=== PATIENT | male | born 1955 | race Hispanic/Latino ===

== ENCOUNTER 2021-09-18 06:42 | Day surgery (SDC) | payer BC ==
[2021-09-18 08:00] LABS: Basophils # (Auto) 0.1 K/mm3 (0.0-0.1); Eosinophils # (Auto) 0.3 K/mm3 (0.0-0.4); Eosinophils % (Auto) 4.6 % (0.0-4.3); Hematocrit 43.5 % (35.5-45.6); Hemoglobin 14.7 gm/dl (11.8-15.2); Lymphocytes # (Auto) 1.4 K/mm3 (1.2-5.4); Lymphocytes % (Auto) 21.3 % (13.4-35.0); Mean Corpuscular HGB Conc 34 % (32-34); Mean Corpuscular Volume 93 fl (84-94); Monocytes # (Auto) 0.5 K/mm3 (0.0-0.8); Monocytes % (Auto) 7.1 % (0.0-7.3); Platelet Count 295 K/mm3 (140-440); Red Blood Count 4.69 M/mm3 (3.65-5.03); Red Cell Distribution Width 12.8 % (13.2-15.2)
[2021-09-18] MEDS ORDERED: SODIUM CHLORIDE 0.9% 500 ML 500 ML IV SCH (08:00)
[2021-09-18] MEDS ORDERED: ASPIRIN EC 325 MG TAB PO SCH (08:00)
[2021-09-18 08:12] LABS: BUN/Creatinine Ratio 14; Blood Urea Nitrogen 15 mg/dL (9-20); Calcium 9.4 mg/dL (8.4-10.2); Hemolysis Index 3
[2021-09-18 08:15] LABS: INR 0.83 (0.87-1.13)
[2021-09-18] MEDS ORDERED: HEPARIN 10,000 UNITS/10 ML VIAL ONE (09:05)
[2021-09-18] MEDS ORDERED: NITROGLYCERIN SYRINGE 3 ML ONE (09:05)
[2021-09-18] MEDS ORDERED: HEPARIN/NS 5000 UNIT/500ML 1,000 ML IR ONE (09:05)
[2021-09-18] MEDS ORDERED: VERAPAMIL 5 MG/2 ML INJ ONE (09:05)
[2021-09-18] MEDS ORDERED: LIDOCAINE (1%) 10 MG/1 ML VIAL 20 ML MDV ONE (09:05)
[2021-09-18] MEDS ORDERED: MIDAZOLAM 2 MG/2 ML INJ ONE (09:32)
[2021-09-18] MEDS ORDERED: MIDAZOLAM 2 MG/2 ML INJ IV ONE ×2 (09:48→09:58)
[2021-09-18] MEDS ORDERED: HEPARIN 10,000 UNITS/10 ML VIAL ART-SHEATH ONE ×2 (09:49→10:01)
[2021-09-18] MEDS ORDERED: LIDOCAINE (1%) 10 MG/1 ML VIAL 20 ML MDV INFILTRATI ONE ×2 (09:49→10:00)
[2021-09-18] MEDS ORDERED: NITROGLYCERIN 600 MCG/3 ML SYRINGE ART-SHEATH ONE ×2 (09:50→10:02)
[2021-09-18] MEDS ORDERED: VERAPAMIL 5 MG/2 ML INJ ART-SHEATH ONE ×2 (09:50→10:02)
--- NOTE | 2021-09-18 10:41 | Discharge Summary ---
Short Stay Discharge Plan Activity: advance as tolerated Weight Bearing Status: Full Weight Bearing Diet: low fat, low cholesterol, low salt Wound: keep clean and dry Special Instructions: smoking cessation, no heavy lifting (3 days) Follow up with: DR LYNETTE [Other] - 7 Days RAY HERNANDEZ MD [Staff Physician] - 7 Days
[2021-09-18] MEDS ORDERED: SODIUM CHLORIDE 0.9% 1000 ML 1,000 ML IV SCH (10:45)
[2021-09-18] MEDS ORDERED: traMADol 50 MG TAB PO PRN (11:00)
--- NOTE | 2021-09-18 12:23 | Event Note ---
Date: 09/18/21 We have recommend immediate transfer to [place] today for evaluation for coronary bypass, but the patient refuses, stating that he has to go home and take care of some personal issues before he considers bypass surgery. He is aware of the severity of his disease with multiple severe coronary lesions, but wants to proceed with coronary bypass assessment in the outpatient setting. I will add aspirin, metoprolol, long-acting nitrates and atorvastatin to his regimen. I will order a consultation to [place] [facility] surgery for outpatient assessment MELISSA.
--- NOTE | 2021-09-18 13:32 | Cardiac Catherization Report ---
DATE OF SERVICE: 09/18/2021 CARDIAC CATHETERIZATION REPORT REASON FOR PROCEDURE: Chest pain, unstable angina. PROCEDURES PERFORMED: 1. Left heart catheterization. 2. Selective left and right coronary angiography. 3. Left ventricular angiography. 4. Sedation time start 9:49, end 10:15. DESCRIPTION OF PROCEDURE: The patient was prepped and draped in a sterile fashion after informed consent. The right radial cath site was prepped and draped after negative Gordon's test. The right radial artery was entered using Seldinger technique followed by placement of a 6-Sinhala hydrophilic sheath. Routine radial cocktail was administered via the sheath. Selective left and right coronary angiography was performed using a #3.5 left Twyla and a #4 right Twyla. The pigtail catheter was used for left ventricular angiography. The catheters were then removed, sheath removed and hemostasis achieved using a TR band. The patient was returned to the postprocedure unit in stable condition. There were no complications. HEMODYNAMICS: Left ventricular end-diastolic pressure was 14, following coronary angiography. Ascending aortic pressure was 131/61. There was no significant pressure gradient on pullback across the aortic valve. CORONARY ANGIOGRAPHY: The left main coronary artery contained an irregular, 20-30% stenosis of its mid to distal segment. The left anterior descending artery contained a focal, 80% stenosis of its proximal segment. Following this, there were mild irregularities of the mid LAD. We then found another long, 75-80% stenosis of the distal LAD before the apex. The circumflex artery contained a focal, 75-80% stenosis of its proximal segment before a large mid obtuse marginal. Following the mid obtuse marginal, the AV groove circumflex was then occluded. This was a long segment of chronic occlusion leading to a medium to large terminal obtuse marginal. The terminal obtuse marginal was reconstituted by left to left collaterals. The right coronary artery was a relatively small caliber, but dominant vessel. There was a long, 60-70% stenosis of the mid vessel. There was overall mild left ventricular systolic dysfunction with ejection fraction 40-45%. There was moderate to severe hypokinesis of the focal segment of the basal inferior wall. CONCLUSIONS: 1. Severe, multivessel coronary artery disease as above including at least moderate severity left main disease. 2. Mild left ventricular systolic dysfunction, ejection fraction 40-45%. RECOMMENDATIONS: Optimal revascularization strategy is recommended with a consultation to CT surgery for coronary artery bypass. TID: [id number] RECEIPT: [id number] ALEX/PATRICE/ZACH SAGASTUME
[2021-09-18 13:56] VITALS: BP 148/84
[2021-09-18] MEDS ORDERED: METOPROLOL TARTRATE 25 MG TAB PO SCH (22:00)
[2021-09-19] MEDS ORDERED: ASPIRIN EC 81 MG TAB PO SCH (10:00)
--- NOTE | 2021-09-19 17:55 | Electrocardiograph Report ---
[facility] Test Date: 2021-09-18 Test Time: 07:57:26 Pat Name: XI GRAY Department: Room: Gender: M [employer]: LELO : 1955 Requested By: MARILYN MOREL Order Number: [id number] Reading MD: Marilyn Morel Measurements Intervals [place] Rate: 63 P: 64 NV: 143 QRS: 39 QRSD: 104 T: 78 QT: 408 QTc: 417 Interpretive Statements Sinus rhythm Inferior infarct, old No previous ECG available for comparison Electronically Signed On 09-19-2021 17:55:30 EDT by Marilyn Morel
== END 2021-09-18 06:43 | disposition home or self-care (01) ==
LOC: CATHLABREC 06:42
PROVIDERS: ATTEND Internal Medicine Cardiovascular Disease
DX: I25.110 Atherosclerotic heart disease of native coronary artery with unstable angina pectoris (principal); I10 Essential (primary) hypertension; R93.1 Abnormal findings on diagnostic imaging of heart and coronary circulation; E78.00 Pure hypercholesterolemia, unspecified; Z88.5 Allergy status to narcotic agent; Z79.899 Other long term (current) drug therapy; Z87.891 Personal history of nicotine dependence; Z79.82 Long term (current) use of aspirin; Z98.890 Other specified postprocedural states; Z90.49 Acquired absence of other specified parts of digestive tract; Z82.49 Family history of ischemic heart disease and other diseases of the circulatory system
CPT/HCPCS: 36415; 80048; 85025; 85610; 85730; 93005; 93458; C1894; J1644; J1815; J2250; J7040; Q9967